=== PATIENT | female | born 1970 | race American Indian/Alaskan Native ===

== ENCOUNTER 2016-08-30 10:35 | Inpatient (IN) | payer BC ==
[2016-08-26 12:35] VITALS: BMI 27.4
--- NOTE | 2016-08-30 08:13 | CP.PCM.HP ---
History of Present Illness - History of Present Illness History of Present Illness: c/o pelvic pain Present on Admission - Present on Admission Any Indicators Present on Admission: No Review of Systems - Review of Systems All systems: reviewed and no additional remarkable complaints except - Constitutional Constitutional: As Per HPI Past Patient History - Past Medical History & Family History Past Medical History?: No - Past Social History Smoking Status: Never Smoked Chewing Tobacco Use: No Cigar Use: No Alcohol: None Drugs: Denies Home Situation {Lives}: With Family Domestic Violence: Negative - HEMATOLOGICAL/ONCOLOGICAL Hx Blood Transfusions: No - GENITOURINARY/GYNECOLOGICAL Hx Genitourinary Disorders: No - SURGICAL HISTORY Other/Comment: RIGHT EYE SURGERY;LEFT BREAST CYST REMOVAL X2-/2014 - ANESTHESIA Hx Anesthesia Reactions: No Hx Malignant Hyperthermia: No Has any member of the family had a problem w/ anesthesia?: No Meds Allergies/Adverse Reactions: Allergies Allergy/AdvReac Type Severity Reaction Status Date / Time No Known Allergies Allergy Verified 08/26/16 11:54 Physical Exam - Constitutional Appears: No Acute Distress - Head Exam Head Exam: ATRAUMATIC - Eye Exam Eye Exam: Normal appearance - ENT Exam ENT Exam: Mucous Membranes Moist - Neck Exam Neck exam: Positive for: Normal Inspection - Respiratory Exam Respiratory Exam: NORMAL BREATHING PATTERN - Cardiovascular Exam Cardiovascular Exam: REGULAR RHYTHM - GI/Abdominal Exam GI & Abdominal Exam: Normal Bowel Sounds - Rectal Exam Rectal Exam: NORMAL INSPECTION - Extremities Exam Extremities exam: Positive for: full ROM - Back Exam Back exam: NORMAL INSPECTION - Neurological Exam Neurological exam: Normal Gait, Oriented x3, Reflexes Normal - Skin Skin Exam: Dry, Intact, Normal Color Results - Vital Signs Recent Vital Signs: Last Vital Signs Temp 97.6 F 08/26/16 12:36 Pulse 78 08/26/16 12:36 Resp 18 08/26/16 12:36 BP 120/70 08/26/16 12:36 Pulse Ox
[2016-08-30] MEDS ORDERED: Propofol 10 mg/ml Inj (20 ML) ONE (10:53)
[2016-08-30] MEDS ORDERED: Midazolam 2 MG/2 ML VIAL ONE (10:53)
[2016-08-30] MEDS ORDERED: Lidocaine 2% MPF (5 ml) Inj ONE (10:53)
[2016-08-30] MEDS ORDERED: Lactated Ringer's 1,000 ML IV ONE ×2 (11:55→14:20)
[2016-08-30] MEDS ORDERED: Rocuronium 10 mg/ml (5 ml) ONE (13:14)
[2016-08-30] MEDS ORDERED: Neostigmine Methylsulfate 2 MG/2 ML ML IV ONE (14:34)
[2016-08-30] MEDS: HYDROmorphone 0.5 mg/0.5 ml ISec IVP PRN ×4 (15:50→17:05)
[2016-08-30] MEDS ORDERED: cefOXitin Sodium 1 GM in Sodium Chloride 0.9% 100 ML IVPB SCH (20:45)
[2016-08-30] MEDS: Oxycodone/Acetaminophen 5/325 mg Tab PO PRN (21:15)
[2016-08-30] MEDS: cefOXitin Sodium 1 GM in Dextrose 5% In Water 50 ML IVPB SCH (22:35)
[2016-08-31] MEDS: Lactated Ringer's 1,000 ML IV SCH ×3 (01:01→16:19)
[2016-08-31] MEDS: cefOXitin Sodium 1 GM in Dextrose 5% In Water 50 ML IVPB SCH ×3 (05:49→22:23)
[2016-08-31 08:20] LABS: HEMATOCRIT 34.2 % (34.0-47.0); MEAN CELL VOLUME 88.4 fl (81.0-99.0); MEAN CORPUSCULAR HEMOGLOBIN 28.3 pg (27.0-31.0); MEAN CORPUSCULAR HGB CONC 32.1 g/dL (33.0-37.0); RED CELL DISTRIBUTION WIDTH 17.8 % (11.5-14.5); WHITE BLOOD COUNT 10.3 K/uL (4.8-10.8)
[2016-08-31] MEDS: Oxycodone/Acetaminophen 5/325 mg Tab PO PRN ×2 (08:30→13:56)
[2016-08-31 08:40] LABS: BLOOD UREA NITROGEN 8 mg/dl (7-17); CALCIUM 8.4 mg/dL (8.4-10.2); CARBON DIOXIDE 25 mmol/L (22-30); CHLORIDE 106 mmol/L (98-107); GFR AFRICAN-AMERICAN > 60; GLUCOSE,RANDOM 109 mg/dL (65-105); POTASSIUM 3.8 MMOL/L (3.6-5.0); SODIUM 138 mmol/l (132-148)
--- NOTE | 2016-08-31 10:33 | CP.PCM.PN ---
Subjective - Date & Time of Evaluation Date of Evaluation: 08/31/16 Time of Evaluation: 10:30 - Subjective Subjective: c/o incisional pain Objective - Vital Signs/Intake and Output Vital Signs (last 24 hours): Temp Pulse Resp BP Pulse Ox 99.6 F 77 20 135/85 99 08/31/16 07:52 08/31/16 07:52 08/31/16 07:52 08/31/16 07:52 08/31/16 07:52 - Medications Medications: Current Medications Lactated Ringer's (Lactated Ringer's) 1,000 mls @ 125 mls/hr IV .Q8H [facility] Last Admin: 08/31/16 08:48 Dose: Not Given Cefoxitin Sodium 1 gm/ (Dextrose) 50 mls @ 50 mls/hr IVPB Q8@0600,1400,2200 [facility] Last Admin: 08/31/16 05:49 Dose: 50 mls/hr Ketorolac Tromethamine (Toradol) 30 mg IVP Q6 PRN PRN Reason: Pain, moderate (4-7) Last Admin: 08/31/16 10:05 Dose: 30 mg Oxycodone/Acetaminophen (Percocet 5/325 Mg Tab) 1 tab PO Q4 PRN PRN Reason: Pain, severe (8-10) Stop: 09/02/16 16:06 Last Admin: 08/31/16 08:30 Dose: 1 tab - Labs Labs: 08/31/16 06:00 08/31/16 06:00 - Eye Exam Additional comments: v.s stable afebrile lungs clear bs soft dressing clean Assessment and Plan - Assessment and Plan (Free Text) Plan: stable pod1 s/p yazmin/bso continue present care oob with assistance dc sanchez increase diet as tolerated dc dressing in pm
--- NOTE | 2016-08-31 15:28 | OP ---
PROCEDURE DATE: 08/30/2016 PREOPERATIVE DIAGNOSES: Pelvic pain and fibroid uterus. POSTOPERATIVE DIAGNOSES: Pelvic pain and fibroid uterus. SURGEON: Joe Cary MD FUEL CELL TEST ENGINEER: Dr. Dunlap and Dr. Uriostegui. ANESTHESIA: DrRashid TYPE OF ANESTHESIA: General. PROCEDURE: Total abdominal hysterectomy and bilateral salpingo-oophorectomy. FINDINGS: Uterus enlarged with multiple fibroids. ESTIMATED BLOOD LOSS: 150 mL. DESCRIPTION OF PROCEDURE: With the patient in the supine position and general anesthesia, the patien t was prepped and draped in usual sterile manner. Dr. Dunlap and Dr. Uriostegui present and assisting in the preparation for the surgery. After this was done, a Pfannenstiel incision was made and taken do wn through the fascia in layers. Fascia incised and extended bilaterally. Muscles from th e fascia by sharp dissection, after which the peritoneum was grasped, incised and extended vertically . Upon entering abdominopelvic cavity, the above findings were found and the bowel packed away from the operative field. The uterus was then elevated and the round ligaments were doubly clamped, cut, and ligated. I am doing my side, Dr. Dunlap doing his side. After this was done, the broad ligamen t was entered in an avascular area and the uterosacral ligaments were doubly clamped, cut and ligated bilaterally and removing the ovaries and tubes also, Dr. Dunlap, as I said, doing his side, I doing my side. The bladder flap was then established and the bladder was pushed away from the operative fi eld. Then following this, the uterine arteries were skeletonized and they were doubly clamped, cut an d ligated maintaining hemostasis. After this was done, several bites were taken down on the side of the cervix. We then amputated the fundus from the cervix to enable us to have more space. After thi s was done, several more bites were taken until the vagina was approximated and the cervix was remove d intact. Following this, the angle sutures were placed onto the vaginal cuff. The vaginal cuff was then running interlocking sutures to maintaining hemostasis. After this was done, several fig [id number] which closed off the vagina, maintaining hemostasis. Following this, the pelvic area w as then reperitonealized, hemostasis was maintained, the pelvic cavity irrigated until clean. The we t laps were removed from the abdominopelvic area and the retractor was removed. After this was done, the peritoneum was grasped and then closed with 0 Vicryl. The muscle approximated with 0 Vicryl. T he fascia was closed with 1 Vicryl running interlocking stitch starting at each end and finishing in the midline, Dr. Dunlap doing his side and I am doing my side. After this was done, the abdomen was closed with pablo. Dr. Dunlap and Dr. Uriostegui were present from beginning to the end of the surger y. The patient tolerated procedure well and was in satisfactory condition on the way to recovery kristel amaro. Joe Cary MD cc: 22 TT: 08/31/2016 15:28:16 radha
[2016-09-01] MEDS: Lactated Ringer's 1,000 ML IV SCH ×3 (01:10→16:16)
[2016-09-01] MEDS: cefOXitin Sodium 1 GM in Dextrose 5% In Water 50 ML IVPB SCH ×3 (05:46→21:02)
[2016-09-01 08:21] LABS: HEMATOCRIT 31.3 % (34.0-47.0); MEAN CELL VOLUME 87.8 fl (81.0-99.0); MEAN CORPUSCULAR HEMOGLOBIN 28.6 pg (27.0-31.0); MEAN CORPUSCULAR HGB CONC 32.6 g/dL (33.0-37.0); RED CELL DISTRIBUTION WIDTH 17.8 % (11.5-14.5); WHITE BLOOD COUNT 8.2 K/uL (4.8-10.8)
[2016-09-01 08:29] LABS: BLOOD UREA NITROGEN 12 mg/dl (7-17); CALCIUM 8.1 mg/dL (8.4-10.2); CARBON DIOXIDE 24 mmol/L (22-30); CHLORIDE 107 mmol/L (98-107); GFR AFRICAN-AMERICAN > 60; GLUCOSE,RANDOM 100 mg/dL (65-105); POTASSIUM 3.8 MMOL/L (3.6-5.0); SODIUM 139 mmol/l (132-148)
[2016-09-01] MEDS: Oxycodone/Acetaminophen 5/325 mg Tab PO PRN ×2 (11:17→18:04)
--- NOTE | 2016-09-01 12:13 | CP.PCM.PN ---
Subjective - Date & Time of Evaluation Date of Evaluation: 09/01/16 Time of Evaluation: 12:10 - Subjective Subjective: Denies C/F, n/v, passing flatus but no bm yet C/o incisional pains. Objective - Vital Signs/Intake and Output Vital Signs (last 24 hours): Temp Pulse Resp BP Pulse Ox 99.1 F 80 20 131/87 100 09/01/16 08:13 09/01/16 08:13 09/01/16 08:13 09/01/16 08:13 09/01/16 08:13 - Medications Medications: Current Medications Docusate Sodium (Colace) 100 mg PO BID [facility] Last Admin: 09/01/16 08:51 Dose: 100 mg Lactated Ringer's (Lactated Ringer's) 1,000 mls @ 125 mls/hr IV .Q8H [facility] Last Admin: 09/01/16 08:52 Dose: Not Given Cefoxitin Sodium 1 gm/ (Dextrose) 50 mls @ 50 mls/hr IVPB Q8@0600,1400,2200 [facility] Last Admin: 09/01/16 05:46 Dose: 50 mls/hr Ketorolac Tromethamine (Toradol) 30 mg IVP Q6 PRN PRN Reason: Pain, moderate (4-7) Last Admin: 09/01/16 05:45 Dose: 30 mg Oxycodone/Acetaminophen (Percocet 5/325 Mg Tab) 1 tab PO Q4 PRN PRN Reason: Pain, severe (8-10) Stop: 09/02/16 16:06 Last Admin: 09/01/16 11:17 Dose: 1 tab - Labs Labs: 09/01/16 06:00 09/01/16 06:00 - Constitutional Appears: No Acute Distress - Head Exam Head Exam: ATRAUMATIC - ENT Exam ENT Exam: Mucous Membranes Moist - Respiratory Exam Respiratory Exam: NORMAL BREATHING PATTERN - GI/Abdominal Exam Additional comments: soft depressible ND, no rebound Incision clean and dry no active bleeding or suppt pablo in place. - Extremities Exam Additional comments: no leg edema or calf tenderness - Neurological Exam Neurological Exam: Alert, Awake, Oriented x3 Assessment and Plan - Assessment and Plan (Free Text) Assessment: stable pod#2 Plan: OOB and ambulation, continue po care and Dulcolax suppt this pm
[2016-09-02] MEDS: Lactated Ringer's 1,000 ML IV SCH (00:15)
[2016-09-02] MEDS: cefOXitin Sodium 1 GM in Dextrose 5% In Water 50 ML IVPB SCH (06:06)
[2016-09-02] MEDS ORDERED: Chlorhexidine Gluconate 1 APPL/PKT TP ONE (07:55)
[2016-09-02 08:12] VITALS: BP 130/79; PULSE 76; RESP 20; TEMP 98.3; O2SAT 99
--- NOTE | 2016-09-02 08:47 | CP.PCM.DIS ---
Provider - Provider Date of Admission: 08/30/16 15:56 Attending physician: Joe Cary MD Consults: none Time Spent in preparation of Discharge (in minutes): 15 Hospital Course - Lab Results Lab Results: Most Recent Lab Values WBC 8.2 K/uL (4.8-10.8) 09/01/16 06:00 RBC 3.56 Mil/uL (3.80-5.20) L 09/01/16 06:00 Hgb 10.2 g/dL (12.0-16.0) L 09/01/16 06:00 Hct 31.3 % (34.0-47.0) L 09/01/16 06:00 MCV 87.8 fl (81.0-99.0) 09/01/16 06:00 MCH 28.6 pg (27.0-31.0) 09/01/16 06:00 MCHC 32.6 g/dL (33.0-37.0) L 09/01/16 06:00 RDW 17.8 % (11.5-14.5) H 09/01/16 06:00 Plt Count 148 K/uL (130-400) 09/01/16 06:00 Sodium 139 mmol/l (132-148) 09/01/16 06:00 Potassium 3.8 MMOL/L (3.6-5.0) 09/01/16 06:00 Chloride 107 mmol/L (98-107) 09/01/16 06:00 Carbon Dioxide 24 mmol/L (22-30) 09/01/16 06:00 Anion Gap 11 (10-20) 09/01/16 06:00 BUN 12 mg/dl (7-17) 09/01/16 06:00 Creatinine 0.8 mg/dL (0.7-1.2) 09/01/16 06:00 Est GFR ( Amer) > 60 09/01/16 06:00 Est GFR (Non-Af Amer) > 60 09/01/16 06:00 Random Glucose 100 mg/dL (65-105) 09/01/16 06:00 Calcium 8.1 mg/dL (8.4-10.2) L 09/01/16 06:00 - Hospital Course Hospital Course: uneventful - Date & Time of H&P Date of H&P: 08/30/16 Time of H&P: 20:00 Discharge Exam - Head Exam Head Exam: ATRAUMATIC, NORMAL INSPECTION - Eye Exam Eye Exam: Normal appearance - ENT Exam ENT Exam: Normal Exam - Neck Exam Neck exam: Normal Inspection - Respiratory Exam Respiratory Exam: UNREMARKABLE - Cardiovascular Exam Cardiovascular Exam: REGULAR RHYTHM - GI/Abdominal Exam GI & Abdominal Exam: Normal Bowel Sounds - Extremities Exam Extremities exam: full ROM, normal inspection - Neurological Exam Neurological exam: Normal Gait - Psychiatric Exam Psychiatric exam: Normal Affect, Normal Mood - Skin Skin Exam: Normal Color Discharge Plan - Follow Up Plan Condition: GOOD Disposition: HOME/ ROUTINE
== END 2016-09-02 12:27 | disposition home or self-care (01) | DRG 743 ==
LOC: H.OPSURG 10:35 → H.MEDSURG1 15:56
PROVIDERS: ADMIT Specialist; ATTEND Specialist
PROC: 0UTC0ZZ Resection of Cervix, Open Approach (ICD-10-PCS; 2016-08-30)
PROC: 0UT20ZZ Resection of Bilateral Ovaries, Open Approach (ICD-10-PCS; 2016-08-30)
PROC: 0UT70ZZ Resection of Bilateral Fallopian Tubes, Open Approach (ICD-10-PCS; 2016-08-30)
PROC: 0UT90ZZ Resection of Uterus, Open Approach (ICD-10-PCS; principal; 2016-08-30 12:30)
DX: D25.9 Leiomyoma of uterus, unspecified (principal); N80.0 Endometriosis of uterus